=== PATIENT | female | born 1960 | race American Indian/Alaskan Native ===

== ENCOUNTER 2017-11-17 12:05 | Emergency (ER) | payer MEDICARE ==
[2017-11-17 12:44] VITALS: BP 113/60
[2017-11-17] MEDS ORDERED: DILAUDID IV ONE ×2 (13:13→14:45)
[2017-11-17] MEDS ORDERED: ZOFRAN IV ONE (13:13)
--- NOTE | 2017-11-17 13:26 | Emergency Department Report ---
ED Back Pain/Injury HPI - General Chief Complaint: Back Pain/Injury Stated Complaint: BACK PAIN Source: EMS, old records reviewed Limitations: No Limitations - History of Present Illness Initial Comments: 57 year old female with a past medical history of chronic neck pain since 1999 for presents to the hospital complains of unbearable back pain. Patient states he has pain but is recently worsened. She went to [facility] on the for the same complaint. She was discharged on ibuprofen and Flexeril and states that despite taking this medication the pain has continued. Patient states typically she has lower back pain that radiates intermittently to either leg. Now the pain is radiating to her right flank and right lower quadrant. Pain radiates down right leg with associated numbness. No reports of nausea, vomiting, dysuria, or urinary incontinence. Patient is currently under pain management. [place] prescription drug monitoring site reviewed and patient just filled 100 tablets of oxycodone 30 mg on November 12. Patient states that she does not like taking this medication and occasionally takes only half the dose because she does not like how it makes her feel. She did not take any of her oxycodone today. She plan to follow-up with orthopedic surgery and urologist as recommended by the discharging ER physician however, instead of seeing orthopedic today she diverted to the ER due to her continued pain. Patient received IV Toradol prior to arrival. medical records received from [facility] at 2pm (summary below) fever 101.6 presentation: back pain, rlq and right leg pain Patient urine had 1+ blood but RBC less than 1, WBC 2, rare bacteria, 1 epithelial cell. CBC: WBC 10.8, H&H 12.6 /38, PLT 312 cmp: normal bun 9/cr 0.73 CT abd/pelvis noncontrast impression: previous gastric surgery, hysterectomy, mild DJD of spine. tiny appendicolith at tip of appendix Pt states he has chronic back pain but typically doesnt radiate to rlq and flank she had a fever of 101.6 when intially triaged at [facility] but improved after motrin. Diagnosis included chronic right-sided back pain with sciatica, microscopic hematuria, constipation d/saroj on Flexeril, motrin, and colace record placed on chart - Related Data Previous Rx's Medication Instructions Recorded Last Taken Type Cyclobenzaprine [Flexeril] 10 mg PO TID PRN #14 tablet 02/06/16 Unknown Rx HYDROcodone/APAP 5-325 [Cameron 1 each PO Q6HR PRN #14 tablet 02/06/16 Unknown Rx 5/325] Allergies Allergy/AdvReac Type Severity Reaction Status Date / Time No Known Allergies Allergy Unverified 02/06/16 13:40 ED Review of Systems ROS: Stated complaint: BACK PAIN Other details as noted in HPI Comment: All other systems reviewed and negative ED Past Medical Hx - Past Medical History Previous Medical History?: Yes Hx Psychiatric Treatment: (anxiety, depression) Additional medical history: sunusitis - Surgical History Past Surgical History?: Yes Additional Surgical History: hysterectomy, right rotator cuff. Surgery for bowel obstruction - Social History Smoking Status: Never Smoker - Medications Home Medications: Home Medications Medication Instructions Recorded Confirmed Last Taken Type Cyclobenzaprine [Flexeril] 10 mg PO TID PRN #14 tablet 02/06/16 Unknown Rx HYDROcodone/APAP 5-325 [Cameron 1 each PO Q6HR PRN #14 tablet 02/06/16 Unknown Rx 5/325] ED Physical Exam - General Limitations: No Limitations - Other Other exam information: General: No limitations, patient is alert in no acute distress Head exam: Atraumatic, normocephalic Eyes exam: Normal appearance, pupils equal reactive to light, extraocular movements intact ENT: Moist mucous membrane, normal oropharynx Neck exam: Normal inspection, full range of motion, no meningismus nontender Respiratory exam: Clear to auscultation bilateral, no wheezes, rales, crackles Cardiovascular: Normal rate and rhythm, normal heart sounds Abdomen: Soft, nondistended, right lower quadrant tenderness, with normal bowel sounds, no rebound, or guarding Extremity: No deformity. Equal for dorsi flexion.. Positive pain with straight leg raise of the right leg. Patient is having too much pain to lift either leg off the bed Back: Tenderness across lower back and bilateral right greater than left. Neurologic: Alert, oriented x3, cranial nerves intact, decrease sensation to touch to the right distal leg Compared to the left. Patient is unable to lift either leg off the bed due to worsening right-sided back pain. Psychiatric: normal affect, normal mood Skin: Warm, dry, intact ED Course Vital Signs 11/17/17 12:43 Temperature 99.1 F Pulse Rate 85 Respiratory 16 Rate Blood Pressure 113/60 [Left] O2 Sat by Pulse 100 Oximetry - Reevaluation(s) Reevaluation #1: 11/17/17 15:01 Improved after initial Dilaudid dose. Patient able to ambulate to the bathroom with assistance. I received medical records from [facility] at this time Reevaluation #2: 11/17/17 15:50 Patient developed an itching/pruritus feeling after receiving IV Decadron for the waist down. No rash, shortness of breath, or wheezing. Benadryl 50 mg ordered ED Medical Decision Making - Lab Data Result diagrams: 11/17/17 14:16 11/17/17 14:16 Lab Results 11/17/17 11/17/17 11/17/17 Range/Units 14:16 14:16 15:00 WBC 7.9 (4.5-11.0) K/mm3 RBC 3.03 L (3.65-5.03) M/mm3 Hgb 9.4 L (10.1-14.3) gm/dl Hct 27.6 L (30.3-42.9) % MCV 91 (79-97) fl MCH 31 (28-32) pg MCHC 34 (30-34) % RDW 13.4 (13.2-15.2) % Plt Count 231 (140-440) K/mm3 Lymph % (Auto) 16.3 (13.4-35.0) % [place] % (Auto) 8.2 H (0.0-7.3) % Eos % (Auto) 0.6 (0.0-4.3) % Baso % (Auto) 0.2 (0.0-1.8) % Lymph # 1.3 (1.2-5.4) K/mm3 [place] # 0.6 (0.0-0.8) K/mm3 Eos # 0.0 (0.0-0.4) K/mm3 Baso # 0.0 (0.0-0.1) K/mm3 Seg Neutrophils % 74.7 H (40.0-70.0) % Seg Neutrophils # 5.9 (1.8-7.7) K/mm3 Sodium 141 (137-145) mmol/L Potassium 4.6 (3.6-5.0) mmol/L Chloride 104.5 (98-107) mmol/L Carbon Dioxide 25 (22-30) mmol/L Anion Gap 16 mmol/L BUN 8 (7-17) mg/dL Creatinine 0.6 L (0.7-1.2) mg/dL Estimated GFR > 60 ml/min BUN/Creatinine Ratio 13 % Glucose 92 (65-100) mg/dL Calcium 8.4 (8.4-10.2) mg/dL Urine Color Yellow (Yellow) Urine Turbidity Clear (Clear) Urine pH 6.0 (5.0-7.0) Ur Specific Kila 1.015 (1.003-1.030) Urine Protein <15 mg/dl (Negative) mg/dL Urine Glucose (UA) Neg (Negative) mg/dL Urine Ketones Neg (Negative) mg/dL Urine Blood Neg (Negative) Urine Nitrite Neg (Negative) Urine Bilirubin Neg (Negative) Urine Urobilinogen 4.0 (<2.0) mg/dL Ur Leukocyte Esterase Tr (Negative) Urine WBC (Auto) < 1.0 (0.0-6.0) /HPF Urine RBC (Auto) 1.0 (0.0-6.0) /HPF U Epithel Cells (Auto) 2.0 (0-13.0) /HPF Urine Bacteria (Auto) 1+ (Negative) /HPF Urine Mucus Few /HPF - Medical Decision Making back pain, rlq pain, sciatica Patient has a history of chronic back pain and states she is not taking the prescribed oxycodone. She is currently under pain management. Patient had symptoms of sciatica of the right extremity No recent fall or trauma reported Patient has newly associated right flank or right lower quadrant pain Although patient had a fever at [facility] subsequent temperatures and CBC are normal Pt able to control, hold, and provide urine sample in ed Patient's symptoms are improving after Toradol, Dilaudid, Zofran and patient was able to ambulate with assistance after these meds Additional Dilaudid, Decadron and ordered for additional pain relief benadryl given for puritis (without rash) after decadron Pt s/o to Dr. Mueller to follow: Given patient's fever at [place], right lower quadrant pain and appendicolith a CT with IV contrast has been ordered. I have a low suspicion given lack of continued fever or leukocytosis UA neg Reassess pain prior to discharge Patient has plenty of pain medication at home and does not require a new prescription for pain medication - Differential Diagnosis UTI, appendicitis, sciatica, radiculopathy Critical Care Time: No Critical care attestation.: If time is entered above; I have spent that time in minutes in the direct care of this critically ill patient, excluding procedure time. ED Disposition Clinical Impression: Acute exacerbation of chronic low back pain, Sciatica, right side Is pt being admited?: No Does the pt Need Aspirin: No Condition: Stable Instructions: Sciatica (ED), Chronic Back Pain (ED) Additional Instructions: Continue you currently prescribed medications and follow up with orthopedic doctor. Return if symptoms worsen as indicated by your discharge instructions Referrals: PRIMARY CARE, [Primary Care Provider] - 3-5 Days
[2017-11-17] MEDS ORDERED: NACL 0.9% 1000 ML 1,000 ML IV ONE ×2 (13:27→14:46)
[2017-11-17 14:30] LABS: Basophils % (Auto) 0.2 % (0.0-1.8); Eosinophils % (Auto) 0.6 % (0.0-4.3); Hematocrit 27.6 % (30.3-42.9); Hemoglobin 9.4 gm/dl (10.1-14.3); Lymphocytes # (Auto) 1.3 K/mm3 (1.2-5.4); Lymphocytes % (Auto) 16.3 % (13.4-35.0); Mean Corpuscular HGB Conc 34 % (30-34); Mean Corpuscular Hemoglobin 31 pg (28-32); Mean Corpuscular Volume 91 fl (79-97); Monocytes # (Auto) 0.6 K/mm3 (0.0-0.8); Monocytes % (Auto) 8.2 % (0.0-7.3); Platelet Count 231 K/mm3 (140-440); Red Blood Count 3.03 M/mm3 (3.65-5.03); Red Cell Distribution Width 13.4 % (13.2-15.2)
[2017-11-17 14:37] LABS: BUN/Creatinine Ratio 13; Blood Urea Nitrogen 8 mg/dL (7-17); Calcium 8.4 mg/dL (8.4-10.2); Hemolysis Index 0
[2017-11-17] MEDS ORDERED: DECADRON IV ONE (14:55)
[2017-11-17 15:31] LABS: Bacteria,Urine 1+ /HPF (Negative); Bilirubin,Urine NEG (Negative); Blood,Urine NEG (Negative); Color,Urine Yellow (Yellow); Mucus,Urine FEW /HPF; Protein,Urine <15 mg/dL mg/dL (Negative); WBC,Urine < 1.0 /HPF (0.0-6.0)
[2017-11-17] MEDS ORDERED: BENADRYL IV ONE (15:48)
--- NOTE | 2017-11-17 17:08 | Cat Scan Report ---
FINAL REPORT EXAM: CT ABDOMEN PELVIS W CON HISTORY: rlq pain, back pain, r flank pain TECHNIQUE: CT examination of the ABDOMEN after IV contrast CT examination of the PELVIS after IV contrast PRIORS: None. FINDINGS: Normal-appearing liver, gallbladder, adrenals, and spleen. Nonspecific slight distention of the common bile duct with 8.[address] evidence of calculus or filling defect. Nonspecific slight prominence of the pancreatic duct with 3.7 mm diameter. No visible pancreatic mass. Intact normal caliber abdominal aorta and IVC. No retroperitoneal adenopathy. No evidence of mesenteric mass. Postoperative changes in the stomach and proximal small bowel. Normal-appearing duodenum. No small bowel distention in the abdomen and pelvis. Normal-appearing kidneys without calculus or hydronephrosis. No renal mass. Normal-appearing proximal ureters. Distal ureters obscured by adjacent anatomy. Very small fat containing ventral midline hernia above the umbilicus level. Transverse dimension 17 mm. Otherwise intact abdominal wall. No pelvic free fluid. Normal-appearing urinary bladder. Uterus not visible. No adnexal abnormality. No definite rectal or sigmoid colon abnormality. No gross ascites, free air, or colonic distention. Scattered prominence of stool from cecum to descending colon may reflect predominately right-sided constipation. Normal-appearing terminal ileum. Normal retrocecal appendix. IMPRESSION: Nonspecific slight distention of the common bile duct and pancreatic ducts without CT evidence of obstructing source Prominent stool and caliber from cecum to descending colon may reflect predominately right-sided constipation No CT evidence of urinary tract calculus or obstruction in the kidneys and visible ureters Very small fat containing midline ventral supraumbilical hernia
== END 2017-11-17 18:35 | disposition home or self-care (01) ==
LOC: ED 12:05
DX: M54.41 Lumbago with sciatica, right side (principal); R50.9 Fever, unspecified; F32.9 Major depressive disorder, single episode, unspecified; F41.9 Anxiety disorder, unspecified; Z90.710 Acquired absence of both cervix and uterus
CPT/HCPCS: 36415; 74177; 80048; 81001; 85025; 96374; 96375; 96376; 99284; J1100; J1170; J1200; J2405; J7030; Q9967

== ENCOUNTER 2021-09-12 20:45 | Emergency (ER) | payer MEDICARE ==
[2021-09-13] MEDS ORDERED: MORPHINE 4 MG/1 ML INJ IV ONE (08:54)
[2021-09-13] MEDS ORDERED: ONDANSETRON 4 MG ODT TAB PO/SL ONE (08:54)
[2021-09-13] MEDS ORDERED: LOPERAMIDE 2 MG CAP PO ONE (08:54)
[2021-09-13] MEDS ORDERED: SODIUM CHLORIDE 0.9% 1000 ML 1,000 ML IV ONE (08:54)
[2021-09-13 10:00] LABS: Basophils % (Auto) 0.4 % (0.0-1.8); Eosinophils # (Auto) 0.2 K/mm3 (0.0-0.4); Eosinophils % (Auto) 2.3 % (0.0-4.3); Hematocrit 30.7 % (30.3-42.9); Hemoglobin 9.9 gm/dl (10.1-14.3); Lymphocytes % (Auto) 21.4 % (13.4-35.0); Mean Corpuscular HGB Conc 32 % (30-34); Mean Corpuscular Volume 82 fl (79-97); Monocytes % (Auto) 10.8 % (0.0-7.3); Platelet Count 405 K/mm3 (140-440); Red Blood Count 3.75 M/mm3 (3.65-5.03); Red Cell Distribution Width 17.3 % (13.2-15.2)
[2021-09-13 10:17] LABS: BUN/Creatinine Ratio 21; Blood Urea Nitrogen 17 mg/dL (7-17); Calcium 9.4 mg/dL (8.4-10.2); Hemolysis Index 52
--- NOTE | 2021-09-13 13:25 | Cat Scan Report ---
CT ABDOMEN AND PELVIS WITH CONTRAST HISTORY: pain. Acute severe lower abdominal pain COMPARISON: CT abdomen/pelvis from 11/17/2017 TECHNIQUE: CT images of the abdomen and pelvis were obtained following administration of intravenous contrast. All CT scans at this location are performed using CT dose reduction for ALARA by means of automated exposure control. CONTRAST: 100 ml of intravenous contrast administered. FINDINGS: Lungs/bones: Lung bases are clear. There are degenerative changes in the spine and the pelvis with n o acute osseous abnormality. Abdomen/pelvis: There is hepatic steatosis in the liver is mildly enlarged. The gallbladder, spleen, pancreas, adrenals, and kidneys appear unremarkable. Gastric bypass changes are again noted. Urinary bladder is unremarkable. Uterus is surgically absent. No pelvic free fluid. No acute colonic abnormality. IMPRESSION: 1. No acute abnormality identified. Signer Name: Cal Nix MD Signed: 09/13/2021 1:21 PM Workstation Name: [id number]
[2021-09-13 13:33] LABS: Bilirubin,Urine NEG (Negative); Blood,Urine NEG (Negative); Color,Urine Yellow (Yellow); Mucus,Urine FEW /HPF; Protein,Urine <15 mg/dL mg/dL (Negative); Urobilinogen,Urine < 2.0 mg/dL (<2.0)
--- NOTE | 2021-09-13 14:09 | Emergency Department Report ---
ED Abdominal Pain HPI - General Chief Complaint: Abdominal Pain Stated Complaint: RECTAL/ABDOMINAL PAIN Time Seen by Provider: 09/13/21 08:47 Source: EMS Mode of arrival: Stretcher Limitations: No Limitations - History of Present Illness Initial Comments: abdominal and rectal pain x 2 weeks, diarrhea x 2 weeks, denies blood - supposed to be getting HIDA scan next week MD Complaint: abdominal pain -: Gradual, days(s) Location: diffuse Severity scale (0 -10): 10 Consistency: intermittent Improves With: nothing Associated Symptoms: diarrhea - Related Data Previous Rx's Medication Instructions Recorded Last Taken Type Cyclobenzaprine [Flexeril] 10 mg PO TID PRN #14 tablet 02/06/16 Unknown Rx HYDROcodone/APAP 5-325 [[place] 1 each PO Q6HR PRN #14 tablet 02/06/16 Unknown Rx 5/325] Loperamide [Imodium] 2 mg PO 4XD #14 cap 09/13/21 Unknown Rx metroNIDAZOLE [Flagyl] 500 mg PO Q12HR #14 tab 09/13/21 Unknown Rx Allergies Allergy/AdvReac Type Severity Reaction Status Date / Time No Known Allergies Allergy Unverified 02/06/16 13:40 ED Review of Systems ROS: Stated complaint: RECTAL/ABDOMINAL PAIN Other details as noted in HPI Constitutional: denies: chills, fever Eyes: denies: eye pain, eye discharge, vision change ENT: denies: ear pain, throat pain Respiratory: denies: cough, shortness of breath, wheezing Cardiovascular: denies: chest pain, palpitations Endocrine: no symptoms reported Gastrointestinal: denies: abdominal pain, nausea, diarrhea Genitourinary: denies: urgency, dysuria, discharge Musculoskeletal: denies: back pain, joint swelling, arthralgia Skin: denies: rash, lesions Neurological: denies: headache, weakness, paresthesias Psychiatric: denies: anxiety, depression Hematological/Lymphatic: denies: easy bleeding, easy bruising ED Past Medical Hx - Past Medical History Previous Medical History?: Yes Hx Psychiatric Treatment: (anxiety, depression) Additional medical history: sunusitis - Surgical History Past Surgical History?: Yes Additional Surgical History: hysterectomy, right rotator cuff. Surgery for bowel obstruction - Social History Smoking Status: Unknown if ever smoked - Medications Home Medications: Home Medications Medication Instructions Recorded Confirmed Last Taken Type Cyclobenzaprine [Flexeril] 10 mg PO TID PRN #14 tablet 02/06/16 Unknown Rx HYDROcodone/APAP 5-325 [[place] 1 each PO Q6HR PRN #14 tablet 02/06/16 Unknown Rx 5/325] Loperamide [Imodium] 2 mg PO 4XD #14 cap 09/13/21 Unknown Rx metroNIDAZOLE [Flagyl] 500 mg PO Q12HR #14 tab 09/13/21 Unknown Rx ED Physical Exam - General Limitations: No Limitations General appearance: alert, in no apparent distress - Head Head exam: Present: atraumatic, normocephalic - Eye Eye exam: Present: normal appearance - ENT ENT exam: Present: mucous membranes moist - Neck Neck exam: Present: normal inspection - Respiratory Respiratory exam: Present: normal lung sounds bilaterally. Absent: respiratory distress - Cardiovascular Cardiovascular Exam: Present: regular rate, normal rhythm. Absent: systolic murmur, diastolic murmur, rubs, gallop - GI/Abdominal GI/Abdominal exam: Present: soft, normal bowel sounds - Extremities Exam Extremities exam: Present: normal inspection - Back Exam Back exam: Present: normal inspection - Neurological Exam Neurological exam: Present: alert, oriented X3 - Psychiatric Psychiatric exam: Present: normal affect, normal mood - Skin Skin exam: Present: warm, dry, intact, normal color. Absent: rash ED Course Vital Signs 09/12/21 09/13/21 09/13/21 21:02 09:42 13:09 Temperature 98.1 F Pulse Rate 110 H Respiratory 18 Rate Blood Pressure 156/90 146/57 O2 Sat by Pulse 100 98 Oximetry 09/13/21 13:18 Temperature 98.0 F Pulse Rate 85 Respiratory 17 Rate Blood Pressure O2 Sat by Pulse 100 Oximetry ED Medical Decision Making - Lab Data Result diagrams: 09/13/21 09:16 09/13/21 09:16 - Radiology Data Radiology results: report reviewed, image reviewed - Medical Decision Making work up negative CT scan unremarable pain meds given fluids feels better Critical care attestation.: If time is entered above; I have spent that time in minutes in the direct care of this critically ill patient, excluding procedure time. ED Disposition Clinical Impression: Diarrhea, Acute gastroenteritis Disposition: 01 HOME / SELF CARE / HOMELESS Is pt being admited?: No Does the pt Need Aspirin: No Condition: Stable Instructions: Abdominal Pain (ED), Viral Gastroenteritis, Adult, Diarrhea, Adult Prescriptions: metroNIDAZOLE [Flagyl] 500 mg PO Q12HR #14 tab Loperamide [Imodium] 2 mg PO 4XD #14 cap Referrals: PRIMARY CARE, [Primary Care Provider] - 3-5 Days
[2021-09-13 15:08] VITALS: BP 152/86
== END 2021-09-13 15:29 | disposition home or self-care (01) ==
LOC: ED 20:45
DX: K52.9 Noninfective gastroenteritis and colitis, unspecified (principal); F41.9 Anxiety disorder, unspecified; Z79.899 Other long term (current) drug therapy
CPT/HCPCS: 36415; 74177; 80048; 81001; 82150; 83690; 85025; 96361; 96374; 99283; J2270; J7030; Q9967; J3490; Q0162